=== PATIENT | male | born 1945 ===

== ENCOUNTER 2023-09-10 03:25 | Observation (INO) ==
[2023-09-10] MEDS ORDERED: IOPAMIDOL 100 ML BOTTLE IV ONE (03:26)
[2023-09-10] MEDS: ONDANSETRON 4 MG/2 ML VIAL IV ONE (05:08)
[2023-09-10] MEDS: morphine 4 MG/ML VIAL IV ONE (05:10)
[2023-09-10] MEDS ORDERED: ONDANSETRON 4 MG/2 ML VIAL IV PRN ×2 (07:25→11:20)
[2023-09-10] MEDS ORDERED: morphine 4 MG/ML VIAL IV PRN (07:25)
[2023-09-10 07:51] LABS: Partial Thromboplastin Time 29.9 sec (20.0-37.0)
[2023-09-10 08:10] LABS: Prothrombin Time 14.2 sec (11.9-14.5)
[2023-09-10 11:46] LABS: Basophils # (Auto) 0.07 K/mcL (0.00-0.30); Basophils % (Auto) 1.2 % (0.0-2.0); Eosinophils # (Auto) 0.06 K/mcL (0.00-0.70); Hematocrit 44.8 % (40.1-51.0); Hemoglobin 14.6 g/dL (13.7-17.5); Lymphocytes # (Auto) 1.09 K/mcL (1.50-4.80); Lymphocytes % (Auto) 18.5 % (15.5-49.0); Mean Cell Volume 93.5 fL (80.0-100.0); Mean Corpuscular HGB Conc 32.6 g/dL (31.0-36.0); Mean Platelet Volume 12.9 fL (8.8-12.5); Monocytes # (Auto) 0.45 K/mcL (0.10-0.90); Monocytes % (Auto) 7.7 % (1.0-12.0); Neutrophils % (Auto) 71.6 % (38.0-78.0); Platelet Count 246 K/mcL (140-440); RBC 4.79 M/mcL (4.63-6.08); Red Cell Distribution Width 11.7 % (11.5-14.5); WBC 5.9 K/mcL (4.5-11.0)
[2023-09-10 11:55] LABS: ALT/SGPT 27 U/L (<40); AST/SGOT 26 U/L (<40); Albumin 4.3 gm/dL (3.2-5.2); Albumin/Globulin Ratio 1.7 (1.0-2.3); Alkaline Phosphatase 148 U/L (39-117); Bilirubin,Total 0.5 mg/dL (0.1-1.0); Blood Urea Nitrogen 28 mg/dL (8-23); Calcium 9.6 mg/dL (8.6-10.4); Carbon Dioxide 27 mmol/L (22-30); Chloride 104 mmol/L (96-108); Globulin 2.6 gm/dL (2.2-3.7); Glomerular Filtration Rate 84; Glucose 127 mg/dL (70-105)
[2023-09-10] MEDS: DIAZEPAM 10 MG/2 ML SYRINGE IV ONE (12:16)
[2023-09-10] MEDS: cefTRIAXone 2 GM VIAL IV SCH (12:17)
[2023-09-10] MEDS ORDERED: LIDOCAINE 2% PF 5 ML VIAL ONE (12:33)
[2023-09-10] MEDS ORDERED: PROPOFOL 200 MG/20 ML VIAL IV ONE (12:33)
[2023-09-10] MEDS ORDERED: fentaNYL 100 MCG/2 ML VIAL ONE (12:34)
[2023-09-10] MEDS: cefTRIAXone 2 GM in DEXTROSE 5% IN WATER 50 ML IV SCH (12:43)
[2023-09-10] MEDS ORDERED: DEXAMETHASONE 10 MG/ML VIAL ONE (12:54)
[2023-09-10] MEDS ORDERED: ROPIVACAINE HCL/PF 30 ML VIAL IJ ONE (12:54)
[2023-09-10] MEDS ORDERED: ePHEDrine 50 MG/5 ML SYRINGE (ANEST) IV ONE (13:12)
[2023-09-10] MEDS ORDERED: MAGNESIUM SULFATE 2 GM/50 ML BAG IV ONE (13:20)
[2023-09-10] MEDS ORDERED: ONDANSETRON 4 MG/2 ML VIAL ONE (13:27)
[2023-09-10] MEDS: GENTAMICIN SULFATE 800 MG/20 ML VIAL IR ONE (13:38)
[2023-09-10] MEDS: VANCOMYCIN 1 GM VIAL TOPICAL SCH (13:38)
[2023-09-10] MEDS ORDERED: oxyCODONE IR 5 MG TABLET PO PRN (14:39)
[2023-09-10] MEDS ORDERED: IPRATROPIUM/ALBUTEROL 3 ML AMPUL.NEB NEB PRN (14:42)
[2023-09-10] MEDS ORDERED: PROMETHAZINE 25 MG/ML VIAL IV PRN (14:42)
[2023-09-10] MEDS ORDERED: HYDROmorphone 0.5 MG/0.5 ML SYRINGE IV PRN (14:42)
[2023-09-10] MEDS ORDERED: fentaNYL 100 MCG/2 ML VIAL IV PRN (14:42)
[2023-09-10] MEDS: KETOROLAC 15 MG/ML VIAL IV PRN (14:46)
[2023-09-10] MEDS: 0.9 % SODIUM CHLORIDE 10 ML SYRINGE IV SCH ×2 (15:42)
[2023-09-10] MEDS: 0.9 % SODIUM CHLORIDE 1,000 ML IV SCH (15:42)
[2023-09-10] MEDS: DOCUSATE SODIUM 100 MG CAPSULE PO SCH (21:31)
[2023-09-10] MEDS: glipiZIDE 5 MG TABLET PO SCH (21:31)
[2023-09-10] MEDS: SENNOSIDES 1 TABLET PO SCH (21:31)
[2023-09-10] MEDS: metFORMIN 500 MG TABLET PO SCH (21:31)
[2023-09-11] MEDS: LISINOPRIL 5 MG TABLET PO SCH (09:58)
== END 2023-09-11 12:30 | disposition home or self-care (01) ==
LOC: MEDSUR 03:25 → ED 03:25 → MEDSUR 09:39
PROVIDERS: ADMIT Family Medicine Adult Medicine; ATTEND Family Medicine Adult Medicine